=== PATIENT | female | born 1955 | race Two or more races ===

== ENCOUNTER 2020-07-26 15:45 | Inpatient (IN) | payer MEDICARE, OTHER ==
[~2020-07-26] VITALS: Ht 157.5 cm; Wt 65.8 kg
[2020-07-26 17:25] LABS: Basophils # (auto) 0 10 ^3/uL (0-0.2); Basophils % (auto) 0.3 % (0.0-2.0); Eosinophils # (auto) 0 10 ^3/uL (0-0.8); Eosinophils % (auto) 0.8 % (0.0-7.0); Hematocrit 37.7 % (36.0-46.0); Hemoglobin 13.1 g/dL (12.2-16.2); Lymphocytes # (auto) 0.6 10 ^3/uL (0.4-5.4); Lymphocytes % (auto) 11.7 % (10.0-50.0); Mean Corpuscular Hemoglobin 30.9 pg (28.0-32.0); Mean Corpuscular Hgb Conc. 34.6 g/dL (32.0-36.0); Mean Corpuscular Volume 89.1 fL (80.0-100.0); Monocytes # (auto) 0.4 10 ^3/uL (0-1.3); Monocytes % (auto) 8.7 % (0.0-12.0); Neutrophils # (auto) 4.1 10 ^3/uL (1.6-8.6); Neutrophils % (auto) 78.5 % (37.0-80.0); Nucleated Red Blood Cells % 0.1 %; Platelet Count (auto) 314 10^3/uL (140-450); Red Blood Cells 4.23 10^6/uL (4.0-5.20); Red Cell Distribution Width 13.3 % (11.8-14.3); White Blood Cell 5.2 10^3/uL (4.4-10.8)
[2020-07-26 17:43] LABS: INR 1.05 (0.9-1.15); Partial Thromboplastin Time 25.5 sec (23.0-31.2)
[2020-07-26 17:45] LABS: Alanine Aminotransferase 29 U/L (13-56); Albumin 3.1 g/dL (3.4-5.0); Anion Gap 7 (5-15); Aspartate Aminotransferase 22 U/L (15-37); BUN/Creatinine Ratio 19.7; Blood Urea Nitrogen 14 mg/dL (7-18); Carbon Dioxide 29 mmol/L (21-32); Chloride 104 mmol/L (98-107); GFR African American 107 mL/min; GFR Non-African American 88 mL/min; Glucose 211 mg/dL (74-106); Potassium 3.5 mmol/L (3.5-5.1); Sodium 140 mmol/L (136-145)
[2020-07-26 17:49] LABS: Alkaline Phosphatase 72 U/L (45-117); Bilirubin, Total 0.8 mg/dL (0.2-1.0); Total Protein 7.9 g/dL (6.4-8.2)
[2020-07-26] MEDS ORDERED: ACETAMINOPHEN 325 MG TAB PO ONE (18:15)
[2020-07-26] MEDS ORDERED: AZITHROMYCIN 500MG/ 250ML 250 ML IV ONE (20:15)
[2020-07-26] MEDS ORDERED: DexAMETHasone SOD PHOS 10MG/1ML VIAL INJ IV ONE (20:15)
[2020-07-26] MEDS ORDERED: ACETAMINOPHEN 500 MG TAB PO PRN (20:45)
[2020-07-26] MEDS ORDERED: NITROGLYCERIN 0.4 MG SL TAB SL PRN (20:45)
[2020-07-26] MEDS ORDERED: ALBUTEROL SULF HFA 90MCG INH 200DOSE IN PRN (20:45)
[2020-07-26] MEDS ORDERED: MORPHINE SULF INJ 2 MG/ML SYRINGE 1ML IV PRN (20:45)
[2020-07-26] MEDS ORDERED: SODIUM CHLORIDE 0.9% 1,000 ML IV SCH (20:45)
[2020-07-26] MEDS ORDERED: ONDANSETRON HCL 4 MG/2 ML VIAL IV PRN (20:45)
[2020-07-26] MEDS ORDERED: cloNIDine HCL 0.1 MG TAB PO PRN (20:45)
[2020-07-26] MEDS ORDERED: TEMAZEPAM 15 MG CAP PO PRN (20:45)
[2020-07-26 21:25] LABS: Magnesium 2.3 mg/dL (1.6-2.6)
[2020-07-26 21:34] LABS: CRP High Sensitivity 6.75 mg/dL (< 0.3)
[2020-07-26] MEDS: FAMOTIDINE 20 MG TAB PO SCH (22:00)
[2020-07-26] MEDS: ENOXAPARIN SOD 40 MG/0.4 ML SYRINGE SC SCH (22:00)
[2020-07-27 05:13] LABS: Basophils # (auto) 0 10 ^3/uL (0-0.2); Basophils % (auto) 0.3 % (0.0-2.0); Eosinophils # (auto) 0 10 ^3/uL (0-0.8); Eosinophils % (auto) 0.1 % (0.0-7.0); Hematocrit 37.5 % (36.0-46.0); Hemoglobin 12.8 g/dL (12.2-16.2); Lymphocytes # (auto) 0.3 10 ^3/uL (0.4-5.4); Lymphocytes % (auto) 7.6 % (10.0-50.0); Mean Corpuscular Hemoglobin 30.6 pg (28.0-32.0); Mean Corpuscular Hgb Conc. 34.3 g/dL (32.0-36.0); Mean Corpuscular Volume 89.3 fL (80.0-100.0); Monocytes # (auto) 0.1 10 ^3/uL (0-1.3); Monocytes % (auto) 2.1 % (0.0-12.0); Neutrophils # (auto) 3.9 10 ^3/uL (1.6-8.6); Neutrophils % (auto) 89.9 % (37.0-80.0); Nucleated Red Blood Cells % 0.1 %; Platelet Count (auto) 310 10^3/uL (140-450); Red Cell Distribution Width 13.2 % (11.8-14.3); White Blood Cell 4.3 10^3/uL (4.4-10.8)
[2020-07-27 05:39] LABS: Albumin 2.5 g/dL (3.4-5.0); BUN/Creatinine Ratio 20.6; Bilirubin, Total 0.8 mg/dL (0.2-1.0); Calcium 8.9 mg/dL (8.5-10.1)
[2020-07-27] MEDS ORDERED: ASCORBIC ACID 1,000 MG TAB PO SCH (10:00)
[2020-07-27] MEDS ORDERED: DexAMETHasone SOD PHOS 10MG/1ML VIAL INJ IV SCH (10:00)
[2020-07-27] MEDS: FAMOTIDINE 20 MG TAB PO SCH (10:00)
[2020-07-27] MEDS: ENOXAPARIN SOD 40 MG/0.4 ML SYRINGE SC SCH (10:00)
[2020-07-27] MEDS ORDERED: ZINC SULFATE 220mg CAP or TAB PO SCH (10:00)
[2020-07-27] MEDS ORDERED: CHOLECALCIFEROL (VITD3) 2,000 UNIT CAP PO SCH (10:00)
[2020-07-27] MEDS ORDERED: FUROSEMIDE 40 MG/4 ML VIAL IV ONE (14:45)
[2020-07-27] MEDS ORDERED: ZINC220T6 PO (14:55)
[2020-07-27] MEDS ORDERED: ASCO500T11 PO (14:55)
[2020-07-27] MEDS ORDERED: CHOL20007 PO (14:55)
[2020-07-27] MEDS ORDERED: AZIT500T66 PO (14:55)
[2020-07-27] MEDS ORDERED: ALBUAER3 IN (14:55)
[2020-07-27] MEDS ORDERED: PANT40TA2 PO (14:56)
[2020-07-27] MEDS ORDERED: METH4PAK PO (14:56)
[2020-07-27 15:36] VITALS: BP 126/72
[2020-07-27] MEDS ORDERED: AZITHROMYCIN 500MG/ 250ML 250 ML IV SCH (21:00)
== END 2020-07-27 16:56 | disposition home or self-care (01) | DRG 177 ==
LOC: EDBD 15:51 → ER 15:51 → OVERFLOW 15:52
PROVIDERS: ADMIT Nurse Practitioner; ATTEND Internal Medicine
DX: U07.1 COVID-19 (principal); J12.89 Other viral pneumonia; J96.01 Acute respiratory failure with hypoxia; E44.0 Moderate protein-calorie malnutrition; I10 Essential (primary) hypertension; E11.65 Type 2 diabetes mellitus with hyperglycemia; E78.5 Hyperlipidemia, unspecified; Z90.710 Acquired absence of both cervix and uterus; Z82.49 Family history of ischemic heart disease and other diseases of the circulatory system
CPT/HCPCS: 36415; 71045; 80053; 82728; 83036; 83605; 83615; 83735; 84443; 84484; 85025; 85379; 85610; 85730; 86141; 87426; 96365; 96368; 96372; 96375; G0378; J1100

== ENCOUNTER 2020-12-25 12:54 | Inpatient (IN) | payer MEDICARE, MEDICAID ==
[~2020-12-25] VITALS: Ht 162.6 cm; Wt 68.0 kg
[~2020-12-25 12:54] MED LIST: ALBUAER3 IN; ASCO500T11 PO; AZIT500T66 PO; CHOL20007 PO; METH4PAK PO; PANT40TA2 PO; ZINC220T6 PO
[2020-12-25] MEDS ORDERED: cloNIDine HCL 0.1 MG TAB PO ONE (14:00)
[2020-12-25 14:06] LABS: Basophils # (auto) 0.1 10 ^3/uL (0-0.2); Basophils % (auto) 0.8 % (0.0-2.0); Eosinophils # (auto) 0.1 10 ^3/uL (0-0.8); Lymphocytes # (auto) 0.9 10 ^3/uL (0.4-5.4); Lymphocytes % (auto) 13.2 % (10.0-50.0); Mean Corpuscular Hemoglobin 30.8 pg (28.0-32.0); Mean Corpuscular Hgb Conc. 34.2 g/dL (32.0-36.0); Monocytes # (auto) 0.4 10 ^3/uL (0-1.3); Monocytes % (auto) 5.8 % (0.0-12.0); Neutrophils # (auto) 5.3 10 ^3/uL (1.6-8.6); Neutrophils % (auto) 79.2 % (37.0-80.0); Nucleated Red Blood Cells % 0.1 %; Red Blood Cells 4.89 10^6/uL (4.0-5.20); Red Cell Distribution Width 13.3 % (11.8-14.3); White Blood Cell 6.7 10^3/uL (4.4-10.8)
[2020-12-25 14:21] LABS: Alanine Aminotransferase 35 U/L (13-56); Albumin 3.8 g/dL (3.4-5.0); Anion Gap 8 (5-15); Blood Urea Nitrogen 18 mg/dL (7-18); Calcium 8.8 mg/dL (8.5-10.1); Carbon Dioxide 25 mmol/L (21-32); Chloride 106 mmol/L (98-107); Glucose 285 mg/dL (74-106); Magnesium 2.4 mg/dL (1.6-2.6); Potassium 4.3 mmol/L (3.5-5.1); Sodium 139 mmol/L (136-145)
[2020-12-25 14:28] LABS: Alkaline Phosphatase 75 U/L (45-117); Aspartate Aminotransferase 43 U/L (15-37); BUN/Creatinine Ratio 20.5; Bilirubin, Total 0.7 mg/dL (0.2-1.0); GFR African American 83 mL/min; GFR Non-African American 69 mL/min; Total Protein 7.8 g/dL (6.4-8.2)
[2020-12-25 14:53] LABS: Partial Thromboplastin Time 26.4 sec (23.0-31.2)
[2020-12-25 15:03] LABS: Urine Bacteria NONE SEEN /hpf (None Seen); Urine Blood Negative /uL (Negative); Urine Specific Gravity 1.006 (1.001-1.035); Urine WBC <1 /hpf (0 - 5)
[2020-12-25] MEDS ORDERED: NITROGLYCERIN 0.4 MG SL TAB SL PRN ×2 (15:30→19:00)
[2020-12-25] MEDS ORDERED: PANTOPRAZOLE 40 MG/10 ML VIAL INJ IV ONE (15:30)
[2020-12-25] MEDS ORDERED: hydrALAZINE HCL 20 MG/ML VL IV PRN (15:30)
[2020-12-25] MEDS ORDERED: DEXTROSE (50%) 50ML SYRG IV PRN (15:30)
[2020-12-25] MEDS ORDERED: ONDANSETRON HCL 4 MG/2 ML VIAL IV PRN ×2 (15:30→19:00)
[2020-12-25] MEDS ORDERED: MORPHINE SULFATE INJECTION 2 MG/ML SYRG IV PRN ×4 (15:30→19:00)
[2020-12-25] MEDS ORDERED: LABETALOL HCL 5 MG/ML 4ML SYRINGE IV ONE (15:30)
[2020-12-25] MEDS: ACCU-CHEK COMFORT CURVE STRIP VI SCH ×2 (17:00→21:40)
[2020-12-25] MEDS: InsuLIN REG 1unit/0.01ml Soln (100units/ml) SC SCH ×2 (17:00→21:40)
[2020-12-25] MEDS ORDERED: LORazepam 0.5 MG TAB PO PRN (19:00)
[2020-12-25] MEDS ORDERED: DOCUSATE SOD 100 MG CAP PO PRN (19:00)
[2020-12-25] MEDS ORDERED: ALUM & MAG HYDROX-SIMETH LIQ(MAALOX) 30 ML PO PRN (19:00)
[2020-12-25] MEDS ORDERED: ACETAMINOPHEN 325 MG TAB PO PRN (19:00)
[2020-12-25 19:34] LABS: Alcohol, Urine < 3.0 mg/dL (0-10); Amphetamine Screen, Urine NEGATIVE (NEGATIVE); Barbiturate Scree,Urine NEGATIVE (NEGATIVE); Benzodiazephine Screen, Urine NEGATIVE (NEGATIVE); Cannabinoid Screen, Urine NEGATIVE (NEGATIVE); Cocaine Screen, Urine NEGATIVE (NEGATIVE); Opiate Scree,Urine NEGATIVE (NEGATIVE); Phencyclidine Screen, Urine NEGATIVE (NEGATIVE)
[2020-12-25 21:18] LABS: Cholesterol 262 mg/dL (< 200); HDL Cholesterol 40 mg/dL (40-59); LDL Cholesterol 197 mg/dL (< 100); Triglycerides 121 mg/dL (< 150)
[2020-12-25] MEDS: PRAMIPEXOLE DIHYDROCHLORIDE MO 0.25 MG TAB PO SCH (21:40)
[2020-12-25] MEDS: ATORVASTATIN 20 MG TAB PO SCH (21:40)
[2020-12-25] MEDS: HYDROcodone-ACET 5/325MG TAB PO PRN (21:41)
[2020-12-25] MEDS: SODIUM CHLOR 0.9% PF (SALINE LOCK) 10ML VIAL/SYR IV SCH (21:46)
[2020-12-25 22:23] VITALS: BP 133/74
[2020-12-26] MEDS ORDERED: LISI-716 PO (02:12)
[2020-12-26] MEDS ORDERED: ASCO500T11 PO (02:12)
[2020-12-26] MEDS ORDERED: AMLO-489 PO (02:12)
[2020-12-26] MEDS ORDERED: METF-370 PO (02:12)
[2020-12-26] MEDS ORDERED: ZINC220C8 PO (02:12)
[2020-12-26 04:57] VITALS: BP 114/62
[2020-12-26] MEDS: SODIUM CHLOR 0.9% PF (SALINE LOCK) 10ML VIAL/SYR IV SCH ×3 (06:00→21:31)
[2020-12-26] MEDS: ACCU-CHEK COMFORT CURVE STRIP VI SCH ×4 (06:41→21:28)
[2020-12-26] MEDS: InsuLIN REG 1unit/0.01ml Soln (100units/ml) SC SCH ×4 (06:41→21:28)
[2020-12-26 07:47] LABS: Basophils # (auto) 0 10 ^3/uL (0-0.2); Basophils % (auto) 0.5 % (0.0-2.0); Eosinophils # (auto) 0.1 10 ^3/uL (0-0.8); Eosinophils % (auto) 0.7 % (0.0-7.0); Hematocrit 39.4 % (36.0-46.0); Hemoglobin 13.6 g/dL (12.2-16.2); Lymphocytes # (auto) 1.1 10 ^3/uL (0.4-5.4); Lymphocytes % (auto) 14.3 % (10.0-50.0); Mean Corpuscular Hgb Conc. 34.6 g/dL (32.0-36.0); Mean Corpuscular Volume 89.8 fL (80.0-100.0); Monocytes # (auto) 0.5 10 ^3/uL (0-1.3); Monocytes % (auto) 6.8 % (0.0-12.0); Neutrophils % (auto) 77.7 % (37.0-80.0); Nucleated Red Blood Cells % 0.1 %; Red Blood Cells 4.38 10^6/uL (4.0-5.20); Red Cell Distribution Width 13.4 % (11.8-14.3); White Blood Cell 7.7 10^3/uL (4.4-10.8)
[2020-12-26 07:58] LABS: Blood Urea Nitrogen 19 mg/dL (7-18); Calcium 8.8 mg/dL (8.5-10.1); Chloride 108 mmol/L (98-107); Glucose 143 mg/dL (74-106); Sodium 141 mmol/L (136-145)
[2020-12-26 08:00] VITALS: BP 131/72
[2020-12-26 08:02] LABS: Alanine Aminotransferase 28 U/L (13-56); Albumin 3.4 g/dL (3.4-5.0); Alkaline Phosphatase 68 U/L (45-117); Anion Gap 7 (5-15); Aspartate Aminotransferase 24 U/L (15-37); BUN/Creatinine Ratio 25.3; Bilirubin, Total 0.9 mg/dL (0.2-1.0); CRP High Sensitivity 0.55 mg/dL (< 0.3); Carbon Dioxide 26 mmol/L (21-32); Creatine Kinase IFCC 34 U/L (26-192); GFR African American 100 mL/min; GFR Non-African American 82 mL/min; Magnesium 2.3 mg/dL (1.6-2.6); Phosphorus 4.6 mg/dL (2.5-4.90); Total Protein 7.1 g/dL (6.4-8.2)
[2020-12-26 08:13] LABS: INR 1.03 (0.9-1.15); Partial Thromboplastin Time 24.5 sec (23.0-31.2)
[2020-12-26 08:20] LABS: Thyroid Stimulating Hormone 0.93 uIU/mL (0.358-3.74)
[2020-12-26] MEDS: HYDROcodone-ACET 5/325MG TAB PO PRN (09:15)
[2020-12-26] MEDS: ASPirin 81 mg TAB PO SCH (09:16)
[2020-12-26] MEDS: ENOXAPARIN SOD 40 MG/0.4 ML SYRINGE SC SCH (09:17)
[2020-12-26] MEDS: LISINOPRIL 20 MG TAB PO SCH (09:17)
[2020-12-26] MEDS ORDERED: amLODIPine BESYLATE 5 MG TAB PO SCH (10:00)
[2020-12-26 12:00] VITALS: BP 123/57
[2020-12-26 16:00] VITALS: BP 112/60
[2020-12-26] MEDS: ATORVASTATIN 20 MG TAB PO SCH (21:31)
[2020-12-26] MEDS: PRAMIPEXOLE DIHYDROCHLORIDE MO 0.25 MG TAB PO SCH (21:32)
[2020-12-26] MEDS: METOPROLOL TARTRATE 25 MG TAB PO SCH (21:32)
[2020-12-26 22:00] VITALS: BP 122/54
[2020-12-27 05:00] VITALS: BP 104/59
[2020-12-27] MEDS: SODIUM CHLOR 0.9% PF (SALINE LOCK) 10ML VIAL/SYR IV SCH ×2 (05:31→14:00)
[2020-12-27] MEDS: ACCU-CHEK COMFORT CURVE STRIP VI SCH ×2 (06:35→11:43)
[2020-12-27] MEDS: InsuLIN REG 1unit/0.01ml Soln (100units/ml) SC SCH ×2 (06:35→11:44)
[2020-12-27 07:21] LABS: Basophils # (auto) 0 10 ^3/uL (0-0.2); Eosinophils # (auto) 0.1 10 ^3/uL (0-0.8); Eosinophils % (auto) 2.6 % (0.0-7.0); Hematocrit 37.8 % (36.0-46.0); Hemoglobin 13.1 g/dL (12.2-16.2); Lymphocytes # (auto) 1.2 10 ^3/uL (0.4-5.4); Lymphocytes % (auto) 24.6 % (10.0-50.0); Mean Corpuscular Hemoglobin 31.4 pg (28.0-32.0); Mean Corpuscular Hgb Conc. 34.7 g/dL (32.0-36.0); Mean Corpuscular Volume 90.3 fL (80.0-100.0); Monocytes # (auto) 0.4 10 ^3/uL (0-1.3); Monocytes % (auto) 8.9 % (0.0-12.0); Neutrophils # (auto) 3.2 10 ^3/uL (1.6-8.6); Neutrophils % (auto) 62.9 % (37.0-80.0); Nucleated Red Blood Cells % 0.1 %; Red Blood Cells 4.19 10^6/uL (4.0-5.20); Red Cell Distribution Width 13.1 % (11.8-14.3)
[2020-12-27 07:35] LABS: INR 1.01 (0.9-1.15); Partial Thromboplastin Time 25.4 sec (23.0-31.2)
[2020-12-27 07:41] LABS: Potassium 4.1 mmol/L (3.5-5.1)
[2020-12-27 07:52] LABS: Albumin 3.2 g/dL (3.4-5.0); BUN/Creatinine Ratio 29.6; Bilirubin, Total 0.9 mg/dL (0.2-1.0); Calcium 8.8 mg/dL (8.5-10.1); Magnesium 2.2 mg/dL (1.6-2.6); Phosphorus 4.2 mg/dL (2.5-4.90); Total Protein 6.7 g/dL (6.4-8.2)
[2020-12-27 08:00] VITALS: BP 130/59
[2020-12-27] MEDS: METOPROLOL TARTRATE 25 MG TAB PO SCH (09:32)
[2020-12-27] MEDS: ASPirin 81 mg TAB PO SCH (09:32)
[2020-12-27] MEDS: ENOXAPARIN SOD 40 MG/0.4 ML SYRINGE SC SCH (09:33)
[2020-12-27] MEDS: LISINOPRIL 20 MG TAB PO SCH (09:33)
[2020-12-27 11:54] VITALS: BP 127/60
[2020-12-27] MEDS ORDERED: ATOR20TA50 PO (14:00)
[2020-12-27] MEDS ORDERED: ASPI1CHW15 PO (14:00)
[2020-12-27] MEDS ORDERED: PRAM0.5T2 PO (14:00)
[2020-12-27] MEDS ORDERED: METF-372 PO (14:00)
[2020-12-27] MEDS ORDERED: MET25T PO (14:00)
[2020-12-27] MEDS ORDERED: DOCU100C10 PO (14:00)
[2020-12-27] MEDS ORDERED: ALOG1TAB2 PO (14:00)
[2020-12-27] MEDS ORDERED: LISI20TA28 PO (14:00)
== END 2020-12-27 15:35 | disposition home or self-care (01) | DRG 78 ==
LOC: EDBD 12:54 → ER 12:54 → TELE 15:22 → TELE-EAST 20:10
PROVIDERS: ADMIT Hospitalist; ATTEND Hospitalist
DX: I67.4 Hypertensive encephalopathy (principal); G45.9 Transient cerebral ischemic attack, unspecified; N17.9 Acute kidney failure, unspecified; I16.1 Hypertensive emergency; E11.9 Type 2 diabetes mellitus without complications; Z20.822 Contact with and (suspected) exposure to COVID-19; E61.1 Iron deficiency; E66.3 Overweight; Z68.25 Body mass index [BMI] 25.0-25.9, adult; E78.5 Hyperlipidemia, unspecified; Z79.84 Long term (current) use of oral hypoglycemic drugs; Z79.899 Other long term (current) drug therapy; Z82.49 Family history of ischemic heart disease and other diseases of the circulatory system; Z83.3 Family history of diabetes mellitus; Z86.16 Personal history of COVID-19; Z87.01 Personal history of pneumonia (recurrent); Z90.710 Acquired absence of both cervix and uterus; Z91.19 Patient's noncompliance with other medical treatment and regimen; I10 Essential (primary) hypertension; G47.00 Insomnia, unspecified; G25.81 Restless legs syndrome; F17.200 Nicotine dependence, unspecified, uncomplicated; G47.10 Hypersomnia, unspecified
CPT/HCPCS: 36415; 70450; 70551; 71045; 80053; 80061; 80307; 81001; 82306; 82550; 82728; 82962; 83036; 83516; 83540; 83550; 83615; 83735; 83880; 84100; 84443; 84484; 85025; 85610; 85652; 85730; 86141; 86225; 86235; 87040; 87086; 87426; 93005; 93306; 93886; 96374; 96375; C9113; G0378; J1815; J2405

== ENCOUNTER 2021-02-22 20:08 | Emergency (ER) | payer MEDICARE ==
[~2021-02-22] VITALS: Ht 157.5 cm; Wt 68.0 kg
[~2021-02-22 20:08] MED LIST changes: -ALBUAER3 IN; +ALOG1TAB2 PO; -ASCO500T11 PO; +ASPI1CHW15 PO; +ATOR20TA50 PO; -AZIT500T66 PO; -CHOL20007 PO; +DOCU100C10 PO; +LISI20TA28 PO; +MET25T PO; +METF-372 PO; -METH4PAK PO; -PANT40TA2 PO; +PRAM0.5T2 PO; -ZINC220T6 PO
[2021-02-22] MEDS ORDERED: cloNIDine HCL 0.1 MG TAB ONE (20:20)
[2021-02-22] MEDS ORDERED: cloNIDine HCL 0.1 MG TAB PO ONE (20:30)
[2021-02-22 21:19] LABS: Basophils # (auto) 0.1 10 ^3/uL (0-0.2); Basophils % (auto) 1.8 % (0.0-2.0); Eosinophils # (auto) 0 10 ^3/uL (0-0.8); Eosinophils % (auto) 0.4 % (0.0-7.0); Hematocrit 40.5 % (36.0-46.0); Hemoglobin 13.9 g/dL (12.2-16.2); Lymphocytes # (auto) 0.8 10 ^3/uL (0.4-5.4); Lymphocytes % (auto) 14.1 % (10.0-50.0); Mean Corpuscular Hemoglobin 30.8 pg (28.0-32.0); Mean Corpuscular Hgb Conc. 34.4 g/dL (32.0-36.0); Mean Corpuscular Volume 89.3 fL (80.0-100.0); Monocytes # (auto) 0.3 10 ^3/uL (0-1.3); Monocytes % (auto) 6.3 % (0.0-12.0); Neutrophils # (auto) 4.3 10 ^3/uL (1.6-8.6); Neutrophils % (auto) 77.4 % (37.0-80.0); Nucleated Red Blood Cells % 0.1 %; Red Blood Cells 4.53 10^6/uL (4.0-5.20); Red Cell Distribution Width 13.7 % (11.8-14.3); White Blood Cell 5.6 10^3/uL (4.4-10.8)
[2021-02-22 21:28] LABS: INR 0.98 (0.9-1.15); Partial Thromboplastin Time 26.6 sec (23.0-31.2)
[2021-02-22 21:57] LABS: Anion Gap 7 (5-15); Blood Urea Nitrogen 20 mg/dL (7-18); Calcium 9.4 mg/dL (8.5-10.1); Carbon Dioxide 26 mmol/L (21-32); Chloride 103 mmol/L (98-107); Glucose 229 mg/dL (74-106); Potassium 4.6 mmol/L (3.5-5.1); Sodium 136 mmol/L (136-145)
[2021-02-22 22:00] LABS: Alanine Aminotransferase 40 U/L (13-56); Aspartate Aminotransferase 24 U/L (15-37); BUN/Creatinine Ratio 25.6; GFR African American 95 mL/min; GFR Non-African American 79 mL/min
[2021-02-22 22:05] LABS: Alkaline Phosphatase 81 U/L (45-117); Bilirubin, Total 0.5 mg/dL (0.2-1.0)
[2021-02-22 22:51] LABS: Urine Bacteria NONE SEEN /hpf (None Seen); Urine Blood Negative /uL (Negative); Urine WBC 1 /hpf (0 - 5)
[2021-02-22 23:52] VITALS: BP 127/55
== END 2021-02-23 00:07 | disposition home or self-care (01) ==
LOC: ER 20:13
DX: I10 Essential (primary) hypertension (principal); B69.0 Cysticercosis of central nervous system; E11.9 Type 2 diabetes mellitus without complications; E78.5 Hyperlipidemia, unspecified; Z90.710 Acquired absence of both cervix and uterus; Z86.73 Personal history of transient ischemic attack (TIA), and cerebral infarction without residual deficits
CPT/HCPCS: 36415; 70450; 71045; 80053; 81001; 83735; 83880; 84484; 85025; 85610; 85730; 93005

== ENCOUNTER 2021-04-19 03:50 | Emergency (ER) | payer OTHER, MEDICAID ==
[~2021-04-19] VITALS: Ht 147.3 cm; Wt 46.3 kg
[2021-04-19 05:26] LABS: Albumin 3.5 g/dL (3.4-5.0); Anion Gap 8 (5-15); Carbon Dioxide 25 mmol/L (21-32); Chloride 106 mmol/L (98-107); Glucose 157 mg/dL (74-106); Potassium 3.9 mmol/L (3.5-5.1); Sodium 139 mmol/L (136-145)
[2021-04-19 05:32] LABS: Alanine Aminotransferase 33 U/L (13-56); Alkaline Phosphatase 62 U/L (45-117); Aspartate Aminotransferase 28 U/L (15-37); Bilirubin, Total 0.4 mg/dL (0.2-1.0); GFR African American 93 mL/min; GFR Non-African American 77 mL/min; Total Protein 7.4 g/dL (6.4-8.2)
[2021-04-19 05:39] LABS: BUN/Creatinine Ratio 22.5; Blood Urea Nitrogen 18 mg/dL (7-18)
[2021-04-19 06:50] LABS: Basophils # (auto) 0 10 ^3/uL (0-0.2); Basophils % (auto) 0.8 % (0.0-2.0); Eosinophils # (auto) 0.1 10 ^3/uL (0-0.8); Eosinophils % (auto) 1.4 % (0.0-7.0); Hematocrit 40.4 % (36.0-46.0); Hemoglobin 13.5 g/dL (12.2-16.2); Lymphocytes % (auto) 19.5 % (10.0-50.0); Mean Corpuscular Hemoglobin 30.9 pg (28.0-32.0); Mean Corpuscular Hgb Conc. 33.4 g/dL (32.0-36.0); Mean Corpuscular Volume 92.5 fL (80.0-100.0); Monocytes # (auto) 0.4 10 ^3/uL (0-1.3); Neutrophils # (auto) 3.7 10 ^3/uL (1.6-8.6); Neutrophils % (auto) 71.3 % (37.0-80.0); Red Blood Cells 4.37 10^6/uL (4.0-5.20); Red Cell Distribution Width 13.2 % (11.8-14.3); White Blood Cell 5.2 10^3/uL (4.4-10.8)
[2021-04-19 10:34] VITALS: BP 146/72
[2021-04-19 11:51] LABS: Urine Bacteria NONE SEEN /hpf (None Seen); Urine Blood Negative /uL (Negative); Urine Specific Gravity 1.009 (1.001-1.035); Urine WBC <1 /hpf (0 - 5)
== END 2021-04-19 11:01 | disposition home or self-care (01) ==
LOC: ER 03:50
DX: R07.2 Precordial pain (principal); R10.13 Epigastric pain; I10 Essential (primary) hypertension; E11.9 Type 2 diabetes mellitus without complications; E78.5 Hyperlipidemia, unspecified; Z86.73 Personal history of transient ischemic attack (TIA), and cerebral infarction without residual deficits; Z90.710 Acquired absence of both cervix and uterus; Z79.82 Long term (current) use of aspirin; Z79.899 Other long term (current) drug therapy
CPT/HCPCS: 36415; 71045; 80053; 81001; 83880; 84484; 93005

== ENCOUNTER 2024-07-02 13:57 | Inpatient (IN) | payer OTHER, MEDICAID ==
[~2024-07-02] VITALS: Ht 160 cm; Wt 66.5 kg
[~2024-07-02 13:57] MED LIST changes: +ASPI-736 PO; -ASPI1CHW15 PO; +DOCU-265 PO; -DOCU100C10 PO; -LISI20TA28 PO; +LISI20TA56 PO
[2024-07-02] MEDS: ASPirin 81 mg TAB PO ONE (14:15)
[2024-07-02 14:33] LABS: Basophils # (auto) 0 10 ^3/uL (0-0.2); Basophils % (auto) 0.6 % (0.0-2.0); Eosinophils # (auto) 0.1 10 ^3/uL (0-0.8); Eosinophils % (auto) 1.5 % (0.0-7.0); Hematocrit 42.6 % (36.0-46.0); Hemoglobin 14.2 g/dL (12.2-16.2); Lymphocytes # (auto) 1.4 10 ^3/uL (0.4-5.4); Lymphocytes % (auto) 19.8 % (10.0-50.0); Mean Corpuscular Hgb Conc. 33.2 g/dL (32.0-36.0); Mean Corpuscular Volume 90.3 fL (80.0-100.0); Monocytes # (auto) 0.4 10 ^3/uL (0-1.3); Monocytes % (auto) 6.1 % (0.0-12.0); Nucleated Red Blood Cells % 0.2 %; Platelet Count (auto) 265 10^3/uL (140-450); Red Blood Cells 4.72 10^6/uL (4.0-5.20); Red Cell Distribution Width 13.2 % (11.8-14.3)
--- NOTE | 2024-07-02 14:36 | ED.PDOC ---
HPI Comments 68-year-old female who comes in with chief complaint of chest pain that is non provoked at this time. The patient states that the chest pain started while she was at rest. She describes it as substernal and pressure-like. It was associated with some nausea as well as some shortness a breath with the patient denies any vomiting. She has had a history of this chest pain in the past but states that she has never had an [place]. the symptoms started approximately 30 minutes prior to arrival. There has been no cough or fever. She states that the pain is a 4/10 at this time. Chief Complaint: Chest Pain Time Seen by MD: 14:01 Primary Care Provider: patk Reviewed Notes: Nurses Notes, Medications, Allergies (No allergies to medications) Allergies: Coded Allergies: NO KNOWN ALLERGIES (Unverified , 07/26/20) Home Meds Active Scripts Alogliptin Benzoate (Alogliptin) 25 Mg Tab, 25 MG PO DAILY for 30 Days, #30 TAB Prov:YOGESH LALA MD 12/27/20 Metformin Hydrochloride (Metformin Hcl) 1,000 Mg Tab, 1000 MG PO BIDWM, #60 TAB Prov:YOGESH LALA MD 12/27/20 Pramipexole Dihydrochloride (Mirapex) 0.5 Mg Tab, 0.25 MG PO HS, #30 TAB Prov:YOGESH LALA MD 12/27/20 Metoprolol Tartrate (Lopressor) 25 Mg Tb, 25 MG PO BID, #60 TAB Prov:YOGESH LALA MD 12/27/20 Lisinopril (Lisinopril) 20 Mg Tab, 20 MG PO DAILY, #30 TAB Prov:YOGESH LALA MD 12/27/20 Docusate Sodium (Docusate Sodium) 100 Mg Cap, 100 MG PO BIDPRN PRN, #60 CAP Prov:YOGESH LALA MD 12/27/20 Atorvastatin Calcium (ATORVASTATIN CALCIUM) 20 Mg Tab, 40 MG PO HS, #30 TAB Prov:YOGESH LALA MD 12/27/20 Aspirin (Aspirin Low Strength) 81 Mg Chw, 81 MG PO DAILY for 30 Days, #30 TAB.CHEW Prov:YOGESH LALA MD 12/27/20 Information Source: Patient Mode of Arrival: Wheelchair Severity: Moderate Timing: Minutes Duration: Since onset Prehospital treatment: None Location: Substernal Radiation: No Radiation Quality: Squeezing, Pressure Onset: At Rest Cardiac Risk Factors: Hyperlipidemia, HTN, Diabetes PE Risk Factors: None History of: Similar pain in past Modifying Factors: Nothing Associated Signs and Symptoms: SOB, N/V (Nausea but no vomiting) Past Medical History PAST MEDICAL HISTORY: DM, High Lipids, HTN, TIA Surgical History: 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 History Family History Family History: Family hx of HTN Social History Smoker: Non-Smoker Alcohol: Denies ETOH Use Drugs: Denies Drug Use Lives In: Home Constitutional: denies: chills, diaphoresis, fatigue, fever, malaise, sweats, weakness, others EENTM: denies: blurred vision, double vision, ear bleeding, ear discharge, ear drainage, ear pain, ear ringing, eye pain, eye redness, hearing loss, mouth pain, mouth swelling, nasal discharge, nose bleeding, nose congestion, nose pain, photophobia, tearing, throat pain, throat swelling, voice changes, others Respiratory: reports: shortness of breath; denies: cough, hemoptysis, orthopnea, SOB at rest, SOB with excertion, stridor, wheezing, others Cardiovascular: reports: chest pain; denies: dizzy spells, diaphoresis, Dyspnea on exertion, edema, irregular heart beat, left arm pain, lightheadedness, palpitations, PND, syncope, others Gastrointestinal: reports: nausea; denies: abdomen distended, abdominal pain, blood streaked bowels, constipated, diarrhea, dysphagia, difficulty swallowing, hematemesis, melena, poor appetite, poor fluid intake, rectal bleeding, rectal pain, vomiting, others Genitourinary: denies: abnormal vagina bleeding, burning, dyspareunia, dysuria, flank pain, frequency, hematuria, incontinence, pain, , vagina discharge, urgency, others Neurological: denies: dizziness, fainting, headache, left sided numbness, left sided weakness, numbness, paresthesia, pre-existing deficit, right sided numbness, right sided weakness, seizure, speech problems, tingling, tremors, weakness, others Musculoskeletal: denies: back pain, gout, joint pain, joint swelling, muscle pain, muscle stiffness, neck pain, others Integumetry: denies: bruises, change in color, change in hair/nails, dryness, laceration, lesions, lumps, rash, wounds, others Allergic/Immunocompromised: denies: Difficulty Healing, Frequent Infections, Hives, Itching, others Hematologic/Lymphatic: denies: anemia, blood clots, easy bleeding, easy bruising, swollen glands, others Endocrine: denies: excessive hunger, excessive sweating, excessive thirst, excessive urination, flushing, intolerance to cold, intolerance to heat, unexplained weight gain, unexplained weight loss, others Psychiatric: denies: anxiety, bipolar disorder, depression, hopeless, panic disorder, schizophrenia, sleepless, suicidal, others Physical Exam General Appearance: Moderate Distress HEENT: Normal ENT Inspection, Pharynx Normal, TMs Normal Neck: Full Range of Motion, Non-Tender, Normal, Normal Inspection Respiratory: Chest Non-Tender, Lungs Clear, No Accessory Muscle Use, No Respiratory Distress, Normal Breath Sounds Cardiovascular: No Edema, No JVD, No Murmur, No Gallop, Normal Peripheral Pulses, Regular Rate/Rhythm Breast Exam: Deferred Gastrointestinal: No Organomegaly, Non Tender, No Pulsatile Mass, Normal Bowel Sounds, Soft Genitalia: Deferred Pelvic: Deferred Rectal: Deferred Extremities: No calf tenderness, Normal capillary refill, Normal inspection, Normal range of motion, Non-tender, No pedal edema Musculoskeletal : Apperance: Normal Neurologic: Alert, senior java software engineer II-XII nml as Tested, No Motor Deficits, Normal Affect, Normal Mood, No Sensory Deficits Cerebellar Function: Normal Reflexes: Normal Skin: Dry, Normal Color, Warm Lymphatic: No Adenopathy EKG EKG : Pulse Rate (adult): 109 [place]: Normal Cardiac Rhythm: ST Hypertrophy: LAE ST: Nonsp (Poor R-wave progression) Was a procedure done? Was a procedure done?: No CP Differential Dx Differential Diagnosis: Angina, [place], Pulmonary Embolus Differential Diagnosis: CHF Differential Diagnosis: Pericarditis X-Ray, Labs, Meds, VS Vital Signs Date Time Temp Pulse Resp B/P (MAP) Pulse Ox O2 Delivery O2 Flow Rate FiO2 07/02/24 14:58 99 07/02/24 14:36 98.0 113 19 168/76 (106) 98 07/02/24 14:36 109 07/02/24 14:03 109 Lab Test 07/02/24 14:12 Range/Units White Blood Count 7.0 4.4-10.8 10^3/uL Red Blood Count 4.72 4.0-5.20 10^6/uL Hemoglobin 14.2 12.2-16.2 g/dL Hematocrit 42.6 36.0-46.0 % Mean Corpuscular Volume 90.3 80.0-100.0 fL Mean Corpuscular Hemoglobin 30.0 28.0-32.0 pg Mean Corpuscular Hemoglobin Concent 33.2 32.0-36.0 g/dL Red Cell Distribution Width 13.2 11.8-14.3 % Platelet Count 265 140-450 10^3/uL Mean Platelet Volume 8.8 6.9-10.8 fL Neutrophils (%) (Auto) 72.0 37.0-80.0 % Lymphocytes (%) (Auto) 19.8 10.0-50.0 % Monocytes (%) (Auto) 6.1 0.0-12.0 % Eosinophils (%) (Auto) 1.5 0.0-7.0 % Basophils (%) (Auto) 0.6 0.0-2.0 % Neutrophils # (Auto) 5.0 1.6-8.6 10 ^3/uL Lymphocytes # (Auto) 1.4 0.4-5.4 10 ^3/uL Monocytes # (Auto) 0.4 0-1.3 10 ^3/uL Eosinophils # (Auto) 0.1 0-0.8 10 ^3/uL Basophils # (Auto) 0 0-0.2 10 ^3/uL Nucleated Red Blood Cells 0.2 % Sodium Level 142 136-145 mmol/L Potassium Level 3.8 3.5-5.1 mmol/L Chloride Level 108 H 98-107 mmol/L Carbon Dioxide Level 23 20-31 mmol/L Anion Gap 11 5-15 Blood Urea Nitrogen 13 9-23 mg/dL Creatinine 0.98 0.550-1.02 mg/dL Glomerular Filtration Rate Calc 63 >90 mL/min BUN/Creatinine Ratio 13.3 10.0-20.0 Serum Glucose 156 H 74-106 mg/dL Calcium Level 10.3 8.7-10.4 mg/dL Troponin I High Sensitivity < 3 L </=34 ng/L B-Type Natriuretic Peptide 57.11 0-100 pg/mL The patient's CBC is within normal limits The chemistry panel is within normal limits The troponin level is negative The BNP is within normal limits The chest x-ray is negative A cardiology consult should be obtained Images Reviewed?: Images reviewed and evaluated by me Time of 1ST Reevaluation: 14:36 Reevaluation 1ST: Unchanged Patient Education/Counseling: Diagnosis, Treatment, Prognosis Family Education/Counseling: No Family Present Departure 1 Departure Time of Disposition: 15:28 Impression: Primary Impression: Acute coronary syndrome Disposition: 09 ADMITTED INPATIENT Admit to: [facility] Condition: Fair Critical Care Note Critical Care Time?: Yes (35 min-critical care time only) Stability Stability form required: Yes Unstable for transfer: Telemetry monitoring (Telemetry monitoring required), ED Physician Assesment (Clinical assesment) Heart Score Heart Score: Heart Score Response (Comments) Value History Moderate Suspicious 1 EKG Repolarization Disturb 1 Age >65 2 Risk Factors >3 or Hx ASHD 2 Troponin Normal limit 0 Total 6 KATHIE GRECO MD Jul 02, 2024 14:36
--- NOTE | 2024-07-02 14:39 | DVH ---
CHEST RADIOGRAPH Indication: cp Technique: Frontal and lateral view of the chest was obtained Comparison: None FINDINGS: Lines and Tubes: None Lungs: Clear Pleura: No effusion. No pneumothorax. Cardiomediastinal contours: Unremarkable Bones: Unremarkable IMPRESSION: No evidence of acute disease.
[2024-07-02 14:42] LABS: Potassium 3.8 mmol/L (3.5-5.1); Sodium 142 mmol/L (136-145)
[2024-07-02 14:43] LABS: Anion Gap 11 (5-15); Calcium 10.3 mg/dL (8.7-10.4); Carbon Dioxide 23 mmol/L (20-31)
[2024-07-02 14:50] LABS: Chloride 108 mmol/L (98-107); Glucose 156 mg/dL (74-106)
[2024-07-02 15:10] LABS: BUN/Creatinine Ratio 13.3 (10.0-20.0); Blood Urea Nitrogen 13 mg/dL (9-23)
[2024-07-02] MEDS ORDERED: MAALOX PLUS or MAALOX 30 ML PO PRN (15:15)
[2024-07-02] MEDS ORDERED: NITROGLYCERIN 0.4 MG SL TAB SL PRN (15:15)
[2024-07-02] MEDS ORDERED: MORPHINE SULFATE INJ 2 MG/ml SYRG IV PRN (15:15)
[2024-07-02] MEDS ORDERED: ACETAMINOPHEN 325 MG TAB PO PRN (15:15)
[2024-07-02] MEDS ORDERED: DEXTROSE (50%) 50ML SYRG IV PRN (15:15)
--- NOTE | 2024-07-02 15:32 | DVHHP2 ---
History of Present Illness Reason for Visit: chest pain History of Present Illness 60-year-old patient with a past medical history of diverticulosis anxiety and depression comes to the ED with complaints of nausea and vomiting and abdominal pain patient has been having pain for the last 2 days stating that since she woke up this morning she has been having consistent nausea and vomiting with as per patient has vomited over 10 times with a higher estimate of higher than 20 times patient was evaluated in the ED CT scan was completed and there suspected signs that the patient may be having signs of acute infectious colitis patient will be admitted as per ED recommendations for further treatment and care Cardiovascular: HTN Review of Systems Constitutional: Yes: Weakness; No: Fever, Chills, Sweats, Malaise, Other Eyes: No: Pain, Vision change, Conjunctivae inflammation, Eyelid inflammation, Other, Redness ENT: No: Ear pain, Ear discharge, Nose pain, Nose discharge, Nose congestion, Mouth pain, Mouth swelling, Throat pain, Throat swelling, Other Respiratory: No: Cough, Dry, Shortness of breath, SOB with excertion, Wheezing, Hemoptysis, Pleuritic Pain, Sputum, Wheezing, Other Cardiovascular: No: Chest Pain, Palpitations, Orthopnea, Paroxysmal Noc. Dyspnea, Edema, Lt Headedness, Other Gastrointestinal: Nausea, Vomiting, Abdominal Pain, Constipation; No: Diarrhea, Melena, Hematochezia, Other Genitourinary: No Dysuria, No Frequency, No Incontinence, No Hematuria, No Retention, No Other Musculoskeletal: No: other, neck pain, shoulder pain, arm pain, back pain, hand pain, leg pain, foot pain Skin: No: Rash, Lesions, Jaundice, Bruising, Other Neurological: No: Weakness, Numbness, Incoordination, Change in speech, Confusion, Seizures, Other Allergies: Coded Allergies: NO KNOWN ALLERGIES (Unverified , 07/26/20) Medications Current Medications Medications Dose Ordered Sig/Maria De Jesus Route Start Time Stop Time Status Last Admin Dose Admin Atorvastatin Calcium 40 mg HS PO 07/02/24 22:00 UNV Docusate Sodium 100 mg BIDPRN PRN PO 07/02/24 15:15 UNV Lisinopril 20 mg DAILY PO 07/03/24 10:00 UNV Metoprolol Tartrate 25 mg BID PO 07/02/24 22:00 UNV Patient Own Medication 25 mg DAILY PO 07/03/24 10:00 UNV Patient Own Medication 81 mg DAILY PO 07/03/24 10:00 UNV Patient Own Medication 0.25 mg HS PO 07/02/24 22:00 UNV Diagnostic Test (Pha) 1 strip IQ4HR 07/02/24 16:00 UNV Insulin Human Regular IQ4HR SC 07/02/24 16:00 UNV Dextrose 50 ml UD PRN IV 07/02/24 15:15 UNV Aspirin 81 mg DAILY PO 07/03/24 10:00 UNV Acetaminophen 650 mg Q6HP PRN PO 07/02/24 15:15 UNV Zolpidem Tartrate 5 mg QHSP PRN PO 07/02/24 15:15 UNV Lorazepam 0.5 mg Q6HP PRN PO 07/02/24 15:15 UNV Ondansetron HCl 4 mg Q4HP PRN IV 07/02/24 15:15 UNV Al Hydrox/Mg Hydrox/Simethicone 30 ml Q6HPRN PRN PO 07/02/24 15:15 UNV Nitroglycerin 0.4 mg Q5MINP PRN SL 07/02/24 15:15 UNV Morphine Sulfate 2 mg Q30M PRN IV 07/02/24 15:15 UNV Exam Vital Signs Vital Signs Date Time Temp Pulse Resp B/P (MAP) Pulse Ox O2 Delivery O2 Flow Rate FiO2 07/02/24 14:36 98.0 113 19 168/76 (106) 98 General Appearance: Alert, Oriented X3, Cooperative HEENT: Atraumatic, EOMI Respiratory: Clear to auscultation, Normal air movement Cardiovascular: Normal S1, Normal S2 Abdominal: Normal bowel sounds, Soft, No tenderness Extremities: No clubbing, No cyanosis, No edema Skin: No rashes, No significant lesion Neuro: Normal speech Psych/Mental Status: Mood NL Labs/Xrays Labs Test 07/02/24 14:12 Range/Units White Blood Count 7.0 4.4-10.8 10^3/uL Red Blood Count 4.72 4.0-5.20 10^6/uL Hemoglobin 14.2 12.2-16.2 g/dL Hematocrit 42.6 36.0-46.0 % Mean Corpuscular Volume 90.3 80.0-100.0 fL Mean Corpuscular Hemoglobin 30.0 28.0-32.0 pg Mean Corpuscular Hemoglobin Concent 33.2 32.0-36.0 g/dL Red Cell Distribution Width 13.2 11.8-14.3 % Platelet Count 265 140-450 10^3/uL Mean Platelet Volume 8.8 6.9-10.8 fL Neutrophils (%) (Auto) 72.0 37.0-80.0 % Lymphocytes (%) (Auto) 19.8 10.0-50.0 % Monocytes (%) (Auto) 6.1 0.0-12.0 % Eosinophils (%) (Auto) 1.5 0.0-7.0 % Basophils (%) (Auto) 0.6 0.0-2.0 % Neutrophils # (Auto) 5.0 1.6-8.6 10 ^3/uL Lymphocytes # (Auto) 1.4 0.4-5.4 10 ^3/uL Monocytes # (Auto) 0.4 0-1.3 10 ^3/uL Eosinophils # (Auto) 0.1 0-0.8 10 ^3/uL Basophils # (Auto) 0 0-0.2 10 ^3/uL Nucleated Red Blood Cells 0.2 % Sodium Level 142 136-145 mmol/L Potassium Level 3.8 3.5-5.1 mmol/L Chloride Level 108 H 98-107 mmol/L Carbon Dioxide Level 23 20-31 mmol/L Anion Gap 11 5-15 Blood Urea Nitrogen 13 9-23 mg/dL Creatinine 0.98 0.550-1.02 mg/dL Glomerular Filtration Rate Calc 63 >90 mL/min BUN/Creatinine Ratio 13.3 10.0-20.0 Serum Glucose 156 H 74-106 mg/dL Calcium Level 10.3 8.7-10.4 mg/dL Troponin I High Sensitivity < 3 L </=34 ng/L B-Type Natriuretic Peptide 57.11 0-100 pg/mL Assessment/Plan Assessment/Plan Admit to [facility] Infectious colitis suspected IV hydration IV antibiotics Diet as tolerated Chronic underlying diseases including history of suspected cirrhosis Continue with the home medication management CT scan shows signs of possible infectious colitis Patient with hyperglycemia as well Diabetes uncontrolled hyperglycemia IV hydration Insulin sliding scale moderate Incidental finding of liver nodule follow up on outpatient basis Plan discussed with: Patient My Orders Orders - JUSTYNA BROWN MD Procedure Category Date Status Time Atorvastatin (Lipitor) PHA 07/02/24 Logged 22:00 Docusate Sodium PHA 07/02/24 Logged Capsule (Colace 15:15 Lisinopril Tablet PHA 07/03/24 Logged (Zestril Tablet) 10:00 Metoprolol Tartrate PHA 07/02/24 Logged Tablet (Lopressor Ta 22:00 (Nf) Alogliptin PHA 07/03/24 Logged Benzoate (Alogliptin) 10:00 (Nf) Aspirin (Aspirin PHA 07/03/24 Logged Low Strength) 10:00 (Nf) Pramipexole PHA 07/02/24 Logged Dihydrochloride 22:00 Glucose Blood PHA 07/02/24 Logged (Accu-Chek Comfort 16:00 Insulin R (Human) PHA 07/02/24 Logged (Insulin R) 16:00 Dextrose 50% Syringe PHA 07/02/24 Logged 15:15 Admit ADMIT 07/02/24 Transmitted 15:07 Code Status CODE 07/02/24 Transmitted 15:07 Vital Signs LAURI 07/02/24 In Process 15:07 Cardiac DIET 07/02/24 Transmitted Diet-2gna,Lofat,Lochol Dinner Aspirin Tablet PHA 07/03/24 Logged 10:00 Acetaminophen Tablet PHA 07/02/24 Logged (Tylenol Tablet) 15:15 Zolpidem Tartrate PHA 07/02/24 Logged (Ambien) 15:15 Lorazepam Tablet PHA 07/02/24 Logged (Ativan Tablet) 15:15 Complete Blood Count LAB 07/03/24 Verified 04:00 Comprehensive LAB 07/03/24 Verified Metabolic Panel 04:00 Ondansetron Hcl PHA 07/02/24 Logged (Zofran) 15:15 Electrocardigram EKG 07/02/24 Logged 15:07 Alum & Mag PHA 07/02/24 Logged Hydrox-Simethicone 15:15 Troponin-I Hs LAB 07/02/24 Logged 15:07 Cardiac LAURI 07/02/24 In Process Rehabilitation - Outpa Nitroglycerin PHA 07/02/24 Logged Sublingual (Ntrostat 15:15 Morphine Sulfate PHA 07/02/24 Logged Injection 15:15 Stat Ekg For Chest LAURI 07/02/24 In Process Pain 15:07 Notify Md Of Changes LAURI 07/02/24 In Process From Base 15:07 Clinic Scheduler For [facility] 07/02/24 In Process 24 Hours 15:07 Emergency Dysrhythmia [facility] 07/02/24 In Process Protocol 15:07 Rhythm Strips Once [facility] 07/02/24 In Process Every Shift 15:07 Oxygen By Nasal RT 07/02/24 Transmitted Cannula 15:07 Problem List: (1) Uncontrolled diabetes mellitus (2) Chest pain Date of Service: Jul 02, 2024 Billing Provider: JUSTYNA BROWN MD Common Visit Codes: [id number] INP/OBS CARE (HIGH) JUSTYNA BROWN MD Jul 02, 2024 15:32
[2024-07-02] MEDS: InsuLIN REG 1unit/0.01ml Soln (100units/ml) SC SCH (16:00)
[2024-07-02] MEDS: ACCU-CHEK COMFORT CURVE STRIP VI SCH (16:00)
[2024-07-02 16:29] VITALS: PULSE 87; RESP 16; O2SAT 96
--- NOTE | 2024-07-02 18:09 | ECG ---
[facility] Test Date: 2024-07-02 Test Time: 14:58:51 Pat Name: XIMENA BENITEZ Department: ER Room: 0285 Gender: F Dialysis Equipment Technician: FAHAD : 1955 Requested By: KATHIE GRECO Order Number: [id number] Reading MD: Paolo Mcclelland Measurements Intervals [place] Rate: 99 P: 42 CT: 146 QRS: -47 QRSD: 93 T: 58 QT: 356 QTc: 457 Interpretive Statements Sinus rhythm Left anterior fascicular block Abnormal R-wave progression, late transition Electronically Signed On 07-03-2024 16:24:48 PST by Paolo Mcclelland Please click the below link to view image of tracing.
[2024-07-02] MEDS: FUROSEMIDE 20 MG/2 ML VIAL ONE (18:20)
[2024-07-02] MEDS: ATORVASTATIN 20 MG TAB PO SCH (22:42)
[2024-07-02] MEDS: METOPROLOL TARTRATE 25 MG TAB PO SCH (22:43)
[2024-07-02] MEDS: PRAMIPEXOLE DIHYDROCHLORIDE MO 0.25 MG TAB PO SCH (22:43)
[2024-07-03] VITALS (7 sets, daily range): BP systolic 104–115; BP diastolic 41–62; PULSE 58–100; RESP 12–18; TEMP 97.7–98.2; O2SAT 92–97
[2024-07-03 07:45] LABS: Basophils # (auto) 0 10 ^3/uL (0-0.2); Basophils % (auto) 0.5 % (0.0-2.0); Eosinophils # (auto) 0.1 10 ^3/uL (0-0.8); Eosinophils % (auto) 1.8 % (0.0-7.0); Hematocrit 39.9 % (36.0-46.0); Hemoglobin 13.7 g/dL (12.2-16.2); Lymphocytes % (auto) 14.9 % (10.0-50.0); Mean Corpuscular Hemoglobin 30.9 pg (28.0-32.0); Mean Corpuscular Hgb Conc. 34.4 g/dL (32.0-36.0); Mean Corpuscular Volume 90.1 fL (80.0-100.0); Monocytes # (auto) 0.5 10 ^3/uL (0-1.3); Monocytes % (auto) 7.3 % (0.0-12.0); Neutrophils % (auto) 75.5 % (37.0-80.0); Platelet Count (auto) 249 10^3/uL (140-450); Red Blood Cells 4.43 10^6/uL (4.0-5.20); Red Cell Distribution Width 13.3 % (11.8-14.3); White Blood Cell 6.6 10^3/uL (4.4-10.8)
[2024-07-03 08:01] LABS: Alanine Aminotransferase 18 U/L (7-40); Alkaline Phosphatase 71 U/L (46-116); Anion Gap 8 (5-15); Aspartate Aminotransferase 18 U/L (13-40); BUN/Creatinine Ratio 15.8 (10.0-20.0); Blood Urea Nitrogen 12 mg/dL (9-23); Calcium 10.2 mg/dL (8.7-10.4); Carbon Dioxide 27 mmol/L (20-31); Chloride 106 mmol/L (98-107); Potassium 3.7 mmol/L (3.5-5.1); Sodium 141 mmol/L (136-145)
[2024-07-03 08:02] LABS: Albumin 4.3 g/dL (3.2-4.8); Total Protein 7.2 g/dL (5.7-8.2)
[2024-07-03 08:04] LABS: Glucose 123 mg/dL (74-106)
[2024-07-03] MEDS: ONDANSETRON HCL 4 MG/2 ML VIAL IV PRN (08:58)
[2024-07-03] MEDS: LISINOPRIL 20 MG TAB PO SCH (09:52)
[2024-07-03] MEDS: ASPirin 81 mg TAB PO SCH (09:52)
[2024-07-03] MEDS ORDERED: PATIENTS OWN MEDICATION (Aspirin (Aspirin Low Strength) 81 MG) PO SCH (10:00)
--- NOTE | 2024-07-03 10:39 | ECG ---
[facility] Test Date: 2024-07-02 Test Time: 14:03:39 Pat Name: XIMENA BENITEZ Department: ER Room: 0285 B Gender: F Intervention Specialist: MAY : 1955 Requested By: KATHIE GRECO Order Number: [id number] Reading MD: Paolo Mcclelland Measurements Intervals [place] Rate: 109 P: 47 SD: 151 QRS: -55 QRSD: 85 T: 91 QT: 339 QTc: 457 Interpretive Statements Sinus tachycardia Probable left atrial enlargement Left anterior fascicular block Abnormal R-wave progression, late transition Borderline repolarization abnormality Electronically Signed On 07-03-2024 16:24:39 PST by Paolo Mcclelland Please click the below link to view image of tracing.
--- NOTE | 2024-07-03 14:53 | DVHPN2 ---
Reviewed: Care Plan, H&P, Labs, Medications, Previous Orders, Radiology Changes from previous H/P or p: No Changes Eyes: No Pain, No Vision change, No Conjunctivae inflammation, No Eyelid inflammation, No Other, No Redness ENT: No Ear pain, No Ear discharge, No Nose pain, No Nose discharge, No Nose congestion, No Mouth pain, No Mouth swelling, No Throat pain, No Throat swelling, No Other Cardiovascular: No Chest Pain, No Palpitations, No Orthopnea, No Paroxysmal Noc. Dyspnea, No Edema, No Lt Headedness, No Other Respiratory: No Cough, No Dry, No Shortness of breath, No SOB with excertion, No Wheezing, No Hemoptysis, No Pleuritic Pain, No Sputum, No Other Gastrointestinal: Nausea, Vomiting, Abdominal Pain; No Diarrhea; Constipation; No Melena, No Hematochezia, No Other Genitourinary: No Dysuria, No Frequency, No Incontinence, No Hematuria, No Retention, No Other Musculoskeletal: No other, No neck pain, No shoulder pain, No arm pain, No back pain, No hand pain, No leg pain, No foot pain Skin: No Rash, No Lesions, No Jaundice, No Bruising, No Other Objective Vitals Vital Signs Date Time Temp Pulse Resp B/P (MAP) Pulse Ox O2 Delivery O2 Flow Rate FiO2 07/03/24 09:52 97 135/71 07/03/24 09:00 97.9 17 97 97.9 07/03/24 08:20 Room Air* 0 21 Intake/Output Intake and Output 07/03/24 07:00 Intake Total 240 ml Balance 240 ml Intake Oral 240 ml Medications Current Medications Medications Dose Ordered Sig/Maria De Jesus Route Start Time Stop Time Status Last Admin Dose Admin Atorvastatin Calcium 40 mg HS PO 07/02/24 22:00 07/02/24 22:42 40 MG Docusate Sodium 100 mg BIDPRN PRN PO 07/02/24 15:15 Lisinopril 20 mg DAILY PO 07/03/24 10:00 07/03/24 09:52 20 MG Metoprolol Tartrate 25 mg BID PO 07/02/24 22:00 07/03/24 09:52 25 MG Patient Own Medication 25 mg DAILY PO 07/03/24 10:00 Pramipexole Dihydrochloride 0.25 mg HS PO 07/02/24 22:00 07/02/24 22:43 0.25 MG Diagnostic Test (Pha) 1 strip IQ4HR 07/02/24 16:00 07/03/24 12:05 1 STRIP Insulin Human Regular IQ4HR SC 07/02/24 16:00 07/03/24 12:09 2 UNITS Dextrose 50 ml UD PRN IV 07/02/24 15:15 Aspirin 81 mg DAILY PO 07/03/24 10:00 07/03/24 09:52 81 MG Acetaminophen 650 mg Q6HP PRN PO 07/02/24 15:15 Zolpidem Tartrate 5 mg QHSP PRN PO 07/02/24 15:15 Lorazepam 0.5 mg Q6HP PRN PO 07/02/24 15:15 Ondansetron HCl 4 mg Q4HP PRN IV 07/02/24 15:15 07/03/24 08:58 4 MG Al Hydrox/Mg Hydrox/Simethicone 30 ml Q6HPRN PRN PO 07/02/24 15:15 Nitroglycerin 0.4 mg Q5MINP PRN SL 07/02/24 15:15 Morphine Sulfate 2 mg Q30M PRN IV 07/02/24 15:15 Laboratory Results Laboratory Tests 07/03/24 06:52 Chemistry Test 07/03/24 06:52 Albumin 4.3 g/dL (3.2-4.8) Calcium Level 10.2 mg/dL (8.7-10.4) Total Protein 7.2 g/dL (5.7-8.2) LFT Test 07/03/24 06:52 Alanine Aminotransferase (ALT) 18 U/L (7-40) Alkaline Phosphatase 71 U/L (46-116) Aspartate Amino Transferase (AST) 18 U/L (13-40) Total Bilirubin 1.0 mg/dL (0.2-1.0) Labs and/or images reviewed: Labs reviewed by me, Image(s) reviewed by me Assessment/Plan Assessment/Plan Nausea vomiting and abdominal pain: CT abdomen pelvis without contrast pending Urinalysis and urine cultures pending lipase ordered Diverticulosis: Rocephin Depression Anxiety Hypertension Hypercholesterolemia Time spent 50 minutes Plan discussed with: Patient My Orders Orders - JADEN CANTOR MD Procedure Category Date Status Time Ct Ab Pel Wo Con-No CT 07/03/24 Logged Oral Or Iv 14:49 Lipase LAB 07/03/24 Logged 14:50 Urinalysis LAB 07/03/24 Transmitted 14:50 Urine Bacterial JEFFREY 07/03/24 Transmitted Culture 14:50 Date of Service: Jul 03, 2024 Billing Provider: JADEN CANTOR MD Common Visit Codes: [id number] INP/OBS CARE(HIGH) JADEN CANTOR MD Jul 03, 2024 14:53
[2024-07-03] MEDS: cefTRIAXone 1GM/50ML D5W 50 ML IV ONE (15:33)
--- NOTE | 2024-07-03 15:37 | DVH ---
CT ABDOMEN AND PELVIS WITHOUT CONTRAST CLINICAL HISTORY: Nausea vomiting TECHNIQUE: Multiple contiguous axial images of the abdomen and pelvis without intravenous contrast. The images were reformatted degenerate coronal and sagittal reconstructions. All CT scans at this medical facility are performed using dose modulation techniques as appropriate t o a performed exam including the following:Automated exposure control was utilized; adjustment of the MA and/or KV according to patient size; and use of iterative reconstruction technique. Radiation Dose Information: CT Dose: CTDI volume is 6.28 mGy. Dose-length product is 320.17 mGy*cm Comparison: None FINDINGS: Evaluation of the abdomen and pelvis is limited without intravenous contrast. The liver, gallbladder, pancreas, kidneys, adrenal glands, and spleen appear within normal limits. There is no gross evidence of abdominal lymphadenopathy. There is no free fluid or free air. The stomach grossly appears unremarkable. The small and large bowel loops demonstrate normal caliber and appear within normal limits.. The abdominal aorta and IVC appear within normal limits. The bladder appears unremarkable for the degree of distention. The uterus is surgically absent.. The re is no gross evidence of a pelvic mass. There is no free fluid collection. Lung bases are clear. There is no acute osseous abnormality. There are multilevel degenerative changes in the lumbar spine. There is grade 1 anterolisthesis at L4-L5. IMPRESSION: 1. There is no acute process in the abdomen and pelvis. HS:Y
[2024-07-03 16:33] LABS: Urine Bacteria FEW /hpf (None Seen); Urine Blood TRACE /uL (Negative); Urine Clarity Ex.Turbid (Clear); Urine Color Yellow (Yellow); Urine Mucus FEW (None Seen); Urine Protein, UAD 1+ (Negative); Urine Urobilinogen Normal (Negative); Urine WBC 209 /hpf (0 - 5); Urine pH 5.5 (5.0-9.0)
[2024-07-03] MEDS: metroNIDAZOLE 500MG/100ML 100 ML IV SCH (21:55)
[2024-07-04] VITALS (7 sets, daily range): BP systolic 72–119; BP diastolic 31–80; PULSE 61–87; RESP 12–18; TEMP 97.6–98.2; O2SAT 92–98
[2024-07-04] MEDS: cefTRIAXone 1GM/50ML D5W 50 ML IV SCH (09:18)
--- NOTE | 2024-07-04 10:51 | DVHPN2 ---
Reviewed: Care Plan, H&P, Labs, Medications, Previous Orders, Radiology Changes from previous H/P or p: No Changes Eyes: No Pain, No Vision change, No Conjunctivae inflammation, No Eyelid inflammation, No Other, No Redness ENT: No Ear pain, No Ear discharge, No Nose pain, No Nose discharge, No Nose congestion, No Mouth pain, No Mouth swelling, No Throat pain, No Throat swelling, No Other Cardiovascular: No Chest Pain, No Palpitations, No Orthopnea, No Paroxysmal Noc. Dyspnea, No Edema, No Lt Headedness, No Other Respiratory: No Cough, No Dry, No Shortness of breath, No SOB with excertion, No Wheezing, No Hemoptysis, No Pleuritic Pain, No Sputum, No Other Gastrointestinal: Nausea, Vomiting, Abdominal Pain; No Diarrhea; Constipation; No Melena, No Hematochezia, No Other Genitourinary: No Dysuria, No Frequency, No Incontinence, No Hematuria, No Retention, No Other Musculoskeletal: No other, No neck pain, No shoulder pain, No arm pain, No back pain, No hand pain, No leg pain, No foot pain Skin: No Rash, No Lesions, No Jaundice, No Bruising, No Other Objective Vitals Vital Signs Date Time Temp Pulse Resp B/P (MAP) Pulse Ox O2 Delivery O2 Flow Rate FiO2 07/04/24 09:20 98 106/80 07/04/24 08:59 97.9 17 97 97.9 07/04/24 08:00 Room Air* 0 21 Intake/Output Intake and Output 07/04/24 07:00 Intake Total 1750 ml Output Total 0 ml Balance 1750 ml Intake Oral 1600 ml IV Total 150 ml Output Stool Total 0 ml # Voids 8 Medications Current Medications Medications Dose Ordered Sig/Maria De Jesus Route Start Time Stop Time Status Last Admin Dose Admin Atorvastatin Calcium 40 mg HS PO 07/02/24 22:00 07/03/24 21:54 40 MG Docusate Sodium 100 mg BIDPRN PRN PO 07/02/24 15:15 Lisinopril 20 mg DAILY PO 07/03/24 10:00 07/04/24 09:19 20 MG Metoprolol Tartrate 25 mg BID PO 07/02/24 22:00 07/04/24 09:20 25 MG Patient Own Medication 25 mg DAILY PO 07/03/24 10:00 Pramipexole Dihydrochloride 0.25 mg HS PO 07/02/24 22:00 07/03/24 21:54 0.25 MG Diagnostic Test (Pha) 1 strip IQ4HR 07/02/24 16:00 07/04/24 08:00 1 STRIP Insulin Human Regular IQ4HR SC 07/02/24 16:00 07/04/24 04:00 2 UNITS Dextrose 50 ml UD PRN IV 07/02/24 15:15 Aspirin 81 mg DAILY PO 07/03/24 10:00 07/04/24 09:19 81 MG Acetaminophen 650 mg Q6HP PRN PO 07/02/24 15:15 Zolpidem Tartrate 5 mg QHSP PRN PO 07/02/24 15:15 Lorazepam 0.5 mg Q6HP PRN PO 07/02/24 15:15 Ondansetron HCl 4 mg Q4HP PRN IV 07/02/24 15:15 07/03/24 08:58 4 MG Al Hydrox/Mg Hydrox/Simethicone 30 ml Q6HPRN PRN PO 07/02/24 15:15 Nitroglycerin 0.4 mg Q5MINP PRN SL 07/02/24 15:15 Morphine Sulfate 2 mg Q30M PRN IV 07/02/24 15:15 Ceftriaxone Sodium 50 ml @ 100 mls/hr DAILY@09 IV 07/04/24 09:00 07/04/24 09:18 100 MLS/HR Metronidazole 100 ml @ 100 mls/hr Q8HR IV 07/03/24 22:00 07/04/24 05:06 100 MLS/HR Laboratory Results Laboratory Tests 07/03/24 06:52 Urinalysis Test 07/03/24 16:10 Urine Color Yellow (Yellow) Urine Clarity Ex.turbid (Clear) Urine pH 5.5 (5.0-9.0) Urine Specific [place] 1.020 (1.001-1.035) Urine Protein 1+ (Negative) H Urine Ketones Trace (Negative) Urine Blood Trace /uL (Negative) H Urine Nitrite Negative (Negative) Urine Bilirubin Negative (Negative) Urine Urobilinogen Normal mg/dL (Negative) Urine Leukocyte Esterase 3+ /uL (Negative) Urine RBC 89 /hpf (0 - 4) Urine WBC 209 /hpf (0 - 5) Urine Squamous Epithelial Cells Mod /hpf (<5) Urine Bacteria Few /hpf (None Seen) H Urine Mucus Few (None Seen) Urine Glucose Trace mg/dL (Normal) Labs and/or images reviewed: Labs reviewed by me, Image(s) reviewed by me Assessment/Plan Assessment/Plan Sepsis secondary to acute urinary tract infection blood cultures pending, urine cultures pending Acute urinary tract infection: Continue Rocephin, blood cultures pending, urine cultures pending Nausea vomiting and abdominal pain: CT abdomen pelvis without contrast negative for any acute pathology, lipase normal Diverticulosis: Rocephin Depression Anxiety Hypertension Hypercholesterolemia Time spent 50 minutes Plan discussed with: Patient My Orders Orders - JADEN CANTOR MD Procedure Category Date Status Time Ct Ab Pel Wo Con-No CT 07/03/24 Resulted Oral Or Iv 14:49 Urine Bacterial JEFFREY 07/03/24 In Process Culture 14:50 Ceftriaxone 1gm/50ml PHA 07/04/24 In Process D5w (Rocephin) 09:00 Metronidazole PHA 07/03/24 In Process 500mg/100ml (Flagyl 22:00 Date of Service: Jul 04, 2024 Billing Provider: JADEN CANTOR MD Common Visit Codes: [id number] INP/OBS CARE(HIGH) JADEN CANTOR MD Jul 04, 2024 10:51
[2024-07-04] MEDS: ZOLPIDEM TARTRATE 5 MG TAB PO PRN (21:29)
[2024-07-04] MEDS: LORazepam 0.5 MG TAB PO PRN (21:30)
[2024-07-04] MEDS: DOCUSATE SOD 100 MG CAP PO PRN (21:30)
[2024-07-05] VITALS (7 sets, daily range): BP systolic 115–159; BP diastolic 46–82; PULSE 62–102; RESP 16–17; TEMP 97.5–98.4; O2SAT 92–98
--- NOTE | 2024-07-05 10:48 | DVHPN2 ---
Reviewed: Care Plan, H&P, Labs, Medications, Previous Orders, Radiology Changes from previous H/P or p: No Changes Eyes: No Pain, No Vision change, No Conjunctivae inflammation, No Eyelid inflammation, No Other, No Redness ENT: No Ear pain, No Ear discharge, No Nose pain, No Nose discharge, No Nose congestion, No Mouth pain, No Mouth swelling, No Throat pain, No Throat swelling, No Other Cardiovascular: No Chest Pain, No Palpitations, No Orthopnea, No Paroxysmal Noc. Dyspnea, No Edema, No Lt Headedness, No Other Respiratory: No Cough, No Dry, No Shortness of breath, No SOB with excertion, No Wheezing, No Hemoptysis, No Pleuritic Pain, No Sputum, No Other Gastrointestinal: Nausea, Vomiting, Abdominal Pain; No Diarrhea; Constipation; No Melena, No Hematochezia, No Other Genitourinary: No Dysuria, No Frequency, No Incontinence, No Hematuria, No Retention, No Other Musculoskeletal: No other, No neck pain, No shoulder pain, No arm pain, No back pain, No hand pain, No leg pain, No foot pain Skin: No Rash, No Lesions, No Jaundice, No Bruising, No Other Objective Vitals Vital Signs Date Time Temp Pulse Resp B/P (MAP) Pulse Ox O2 Delivery O2 Flow Rate FiO2 07/05/24 09:27 136/65 07/05/24 09:26 91 07/05/24 09:00 97.8 17 96 97.8 07/04/24 08:00 Room Air* 0 21 Intake/Output Intake and Output 07/05/24 07:00 Intake Total 1925 ml Balance 1925 ml Intake Oral 1675 ml IV Total 250 ml # Voids 2 Medications Current Medications Medications Dose Ordered Sig/Maria De Jesus Route Start Time Stop Time Status Last Admin Dose Admin Atorvastatin Calcium 40 mg HS PO 07/02/24 22:00 07/04/24 21:29 40 MG Docusate Sodium 100 mg BIDPRN PRN PO 07/02/24 15:15 07/04/24 21:30 100 MG Lisinopril 20 mg DAILY PO 07/03/24 10:00 07/05/24 09:27 20 MG Metoprolol Tartrate 25 mg BID PO 07/02/24 22:00 07/05/24 09:26 25 MG Patient Own Medication 25 mg DAILY PO 07/03/24 10:00 Pramipexole Dihydrochloride 0.25 mg HS PO 07/02/24 22:00 07/04/24 21:29 0.25 MG Diagnostic Test (Pha) 1 strip IQ4HR 07/02/24 16:00 07/05/24 09:15 1 STRIP Insulin Human Regular IQ4HR SC 07/02/24 16:00 07/05/24 00:00 2 UNITS Dextrose 50 ml UD PRN IV 07/02/24 15:15 Aspirin 81 mg DAILY PO 07/03/24 10:00 07/05/24 09:23 81 MG Acetaminophen 650 mg Q6HP PRN PO 07/02/24 15:15 Zolpidem Tartrate 5 mg QHSP PRN PO 07/02/24 15:15 07/04/24 21:29 5 MG Lorazepam 0.5 mg Q6HP PRN PO 07/02/24 15:15 07/04/24 21:30 0.5 MG Ondansetron HCl 4 mg Q4HP PRN IV 07/02/24 15:15 07/03/24 08:58 4 MG Al Hydrox/Mg Hydrox/Simethicone 30 ml Q6HPRN PRN PO 07/02/24 15:15 Nitroglycerin 0.4 mg Q5MINP PRN SL 07/02/24 15:15 Morphine Sulfate 2 mg Q30M PRN IV 07/02/24 15:15 Ceftriaxone Sodium 50 ml @ 100 mls/hr DAILY@09 IV 07/04/24 09:00 07/05/24 09:22 100 MLS/HR Metronidazole 100 ml @ 100 mls/hr Q8HR IV 07/03/24 22:00 07/05/24 06:36 100 MLS/HR Laboratory Results Laboratory Tests 07/03/24 06:52 Urinalysis Test 07/03/24 16:10 Urine Color Yellow (Yellow) Urine Clarity Ex.turbid (Clear) Urine pH 5.5 (5.0-9.0) Urine Specific [place] 1.020 (1.001-1.035) Urine Protein 1+ (Negative) H Urine Ketones Trace (Negative) Urine Blood Trace /uL (Negative) H Urine Nitrite Negative (Negative) Urine Bilirubin Negative (Negative) Urine Urobilinogen Normal mg/dL (Negative) Urine Leukocyte Esterase 3+ /uL (Negative) Urine RBC 89 /hpf (0 - 4) Urine WBC 209 /hpf (0 - 5) Urine Squamous Epithelial Cells Mod /hpf (<5) Urine Bacteria Few /hpf (None Seen) H Urine Mucus Few (None Seen) Urine Glucose Trace mg/dL (Normal) Microbiology Microbiology Date/Time Source Procedure Growth Status 07/03/24 16:10 Voided Urine Urine Culture - Preliminary Resulted Labs and/or images reviewed: Labs reviewed by me, Image(s) reviewed by me Assessment/Plan Assessment/Plan Sepsis secondary to acute urinary tract infection blood cultures pending, urine cultures mixed Acute urinary tract infection: Continue Rocephin, Nausea vomiting and abdominal pain: CT abdomen pelvis without contrast negative for any acute pathology, lipase normal Diverticulosis: Rocephin Depression Anxiety Hypertension Hypercholesterolemia Time spent 40 minutes Possible discharge tomorrow Plan discussed with: Patient Date of Service: Jul 05, 2024 Billing Provider: JADEN CANTOR MD Common Visit Codes: [id number] INP/OBS CARE(HIGH) JADEN CANTOR MD Jul 05, 2024 10:48
[2024-07-06 04:15] VITALS: BP 138/68; PULSE 68; RESP 15; TEMP 98.1; O2SAT 96
[2024-07-06 08:00] VITALS: PULSE 82; RESP 19
[2024-07-06 09:00] VITALS: BP 147/57; PULSE 82; RESP 19; TEMP 97.3; O2SAT 95
[2024-07-06] MEDS ORDERED: CIPR-173 PO (09:39)
--- NOTE | 2024-07-06 09:40 | DVHPN2 ---
Reviewed: Care Plan, H&P, Labs, Medications, Previous Orders, Radiology Changes from previous H/P or p: No Changes Eyes: No Pain, No Vision change, No Conjunctivae inflammation, No Eyelid inflammation, No Other, No Redness ENT: No Ear pain, No Ear discharge, No Nose pain, No Nose discharge, No Nose congestion, No Mouth pain, No Mouth swelling, No Throat pain, No Throat swelling, No Other Cardiovascular: No Chest Pain, No Palpitations, No Orthopnea, No Paroxysmal Noc. Dyspnea, No Edema, No Lt Headedness, No Other Respiratory: No Cough, No Dry, No Shortness of breath, No SOB with excertion, No Wheezing, No Hemoptysis, No Pleuritic Pain, No Sputum, No Other Gastrointestinal: Nausea, Vomiting, Abdominal Pain; No Diarrhea; Constipation; No Melena, No Hematochezia, No Other Genitourinary: No Dysuria, No Frequency, No Incontinence, No Hematuria, No Retention, No Other Musculoskeletal: No other, No neck pain, No shoulder pain, No arm pain, No back pain, No hand pain, No leg pain, No foot pain Skin: No Rash, No Lesions, No Jaundice, No Bruising, No Other Objective Vitals Vital Signs Date Time Temp Pulse Resp B/P (MAP) Pulse Ox O2 Delivery O2 Flow Rate FiO2 07/06/24 04:15 98.1 68 15 138/68 (91) 96 98.1 07/05/24 19:30 Room Air* 0 21 Intake/Output Intake and Output 07/06/24 07:00 Intake Total 690 ml Balance 690 ml Intake Oral 440 ml IV Total 250 ml # Voids 2 # Bowel Movements 1 Medications Current Medications Medications Dose Ordered Sig/Maria De Jesus Route Start Time Stop Time Status Last Admin Dose Admin Atorvastatin Calcium 40 mg HS PO 07/02/24 22:00 07/05/24 21:46 40 MG Docusate Sodium 100 mg BIDPRN PRN PO 07/02/24 15:15 07/04/24 21:30 100 MG Lisinopril 20 mg DAILY PO 07/03/24 10:00 07/05/24 09:27 20 MG Metoprolol Tartrate 25 mg BID PO 07/02/24 22:00 07/05/24 21:46 25 MG Patient Own Medication 25 mg DAILY PO 07/03/24 10:00 Pramipexole Dihydrochloride 0.25 mg HS PO 07/02/24 22:00 07/05/24 21:46 0.25 MG Diagnostic Test (Pha) 1 strip IQ4HR 07/02/24 16:00 07/06/24 08:00 1 STRIP Insulin Human Regular IQ4HR SC 07/02/24 16:00 07/06/24 04:13 2 UNITS Dextrose 50 ml UD PRN IV 07/02/24 15:15 Aspirin 81 mg DAILY PO 07/03/24 10:00 07/05/24 09:23 81 MG Acetaminophen 650 mg Q6HP PRN PO 07/02/24 15:15 Zolpidem Tartrate 5 mg QHSP PRN PO 07/02/24 15:15 07/04/24 21:29 5 MG Lorazepam 0.5 mg Q6HP PRN PO 07/02/24 15:15 07/06/24 00:11 0.5 MG Ondansetron HCl 4 mg Q4HP PRN IV 07/02/24 15:15 07/03/24 08:58 4 MG Al Hydrox/Mg Hydrox/Simethicone 30 ml Q6HPRN PRN PO 07/02/24 15:15 Nitroglycerin 0.4 mg Q5MINP PRN SL 07/02/24 15:15 Morphine Sulfate 2 mg Q30M PRN IV 07/02/24 15:15 Ceftriaxone Sodium 50 ml @ 100 mls/hr DAILY@09 IV 07/04/24 09:00 07/05/24 09:22 100 MLS/HR Metronidazole 100 ml @ 100 mls/hr Q8HR IV 07/03/24 22:00 07/06/24 05:26 100 MLS/HR Laboratory Results Laboratory Tests 07/03/24 06:52 Urinalysis Test 07/03/24 16:10 Urine Color Yellow (Yellow) Urine Clarity Ex.turbid (Clear) Urine pH 5.5 (5.0-9.0) Urine Specific [place] 1.020 (1.001-1.035) Urine Protein 1+ (Negative) H Urine Ketones Trace (Negative) Urine Blood Trace /uL (Negative) H Urine Nitrite Negative (Negative) Urine Bilirubin Negative (Negative) Urine Urobilinogen Normal mg/dL (Negative) Urine Leukocyte Esterase 3+ /uL (Negative) Urine RBC 89 /hpf (0 - 4) Urine WBC 209 /hpf (0 - 5) Urine Squamous Epithelial Cells Mod /hpf (<5) Urine Bacteria Few /hpf (None Seen) H Urine Mucus Few (None Seen) Urine Glucose Trace mg/dL (Normal) Microbiology Microbiology Date/Time Source Procedure Growth Status 07/04/24 11:00 Blood Blood Culture - Preliminary NO GROWTH AFTER 24 HOURS OF INCUBATION. Resulted 07/03/24 16:10 Voided Urine Urine Culture - Final Complete Labs and/or images reviewed: Labs reviewed by me, Image(s) reviewed by me Assessment/Plan Assessment/Plan Sepsis secondary to acute urinary tract infection blood cultures neg , urine cultures mixed Acute urinary tract infection: Continue Rocephin, Nausea vomiting and abdominal pain: CT abdomen pelvis without contrast negative for any acute pathology, lipase normal Diverticulosis: Rocephin Depression Anxiety Hypertension Hypercholesterolemia Time spent 40 minutes Plan discussed with: Patient Date of Service: Jul 06, 2024 Billing Provider: JADEN CANTOR MD Common Visit Codes: [id number] INP/OBS CARE(HIGH) JADEN CANTOR MD Jul 06, 2024 09:40
--- NOTE | 2024-07-06 09:44 | DVHDS2 ---
Discharge Summary Date of Admission Jul 02, 2024 at 15:07 Date of Discharge: Jul 06, 2024 Admitting Diagnosis Generalized weakness and chest pain Wounds: None Labs/Diagnostic Data: Laboratory Results Test 07/06/24 04:03 07/03/24 16:10 07/03/24 06:52 07/02/24 15:41 POC Glucose 138 mg/dl (70-106) Urine Color Yellow (Yellow) Urine Clarity Ex.turbid (Clear) Urine pH 5.5 (5.0-9.0) Urine Specific [place] 1.020 (1.001-1.035) Urine Protein 1+ (Negative) Urine Ketones Trace (Negative) Urine Blood Trace /uL (Negative) Urine Nitrite Negative (Negative) Urine Bilirubin Negative (Negative) Urine Urobilinogen Normal mg/dL (Negative) Urine Leukocyte Esterase 3+ /uL (Negative) Urine RBC 89 /hpf (0 - 4) Urine WBC 209 /hpf (0 - 5) Urine Squamous Epithelial Cells Mod /hpf (<5) Urine Bacteria Few /hpf (None Seen) Urine Mucus Few (None Seen) Urine Glucose Trace mg/dL (Normal) White Blood Count 6.6 10^3/uL (4.4-10.8) Red Blood Count 4.43 10^6/uL (4.0-5.20) Hemoglobin 13.7 g/dL (12.2-16.2) Hematocrit 39.9 % (36.0-46.0) Mean Corpuscular Volume 90.1 fL (80.0-100.0) Mean Corpuscular Hemoglobin 30.9 pg (28.0-32.0) Mean Corpuscular Hemoglobin Concent 34.4 g/dL (32.0-36.0) Red Cell Distribution Width 13.3 % (11.8-14.3) Platelet Count 249 10^3/uL (140-450) Mean Platelet Volume 8.8 fL (6.9-10.8) Neutrophils (%) (Auto) 75.5 % (37.0-80.0) Lymphocytes (%) (Auto) 14.9 % (10.0-50.0) Monocytes (%) (Auto) 7.3 % (0.0-12.0) Eosinophils (%) (Auto) 1.8 % (0.0-7.0) Basophils (%) (Auto) 0.5 % (0.0-2.0) Neutrophils # (Auto) 5.0 10 ^3/uL (1.6-8.6) Lymphocytes # (Auto) 1.0 10 ^3/uL (0.4-5.4) Monocytes # (Auto) 0.5 10 ^3/uL (0-1.3) Eosinophils # (Auto) 0.1 10 ^3/uL (0-0.8) Basophils # (Auto) 0 10 ^3/uL (0-0.2) Nucleated Red Blood Cells 0.0 % Sodium Level 141 mmol/L (136-145) Potassium Level 3.7 mmol/L (3.5-5.1) Chloride Level 106 mmol/L (98-107) Carbon Dioxide Level 27 mmol/L (20-31) Anion Gap 8 (5-15) Blood Urea Nitrogen 12 mg/dL (9-23) Creatinine 0.76 mg/dL (0.550-1.02) Glomerular Filtration Rate Calc 85 mL/min (>90) BUN/Creatinine Ratio 15.8 (10.0-20.0) Serum Glucose 123 mg/dL (74-106) Calcium Level 10.2 mg/dL (8.7-10.4) Total Bilirubin 1.0 mg/dL (0.2-1.0) Aspartate Amino Transferase (AST) 18 U/L (13-40) Alanine Aminotransferase (ALT) 18 U/L (7-40) Alkaline Phosphatase 71 U/L (46-116) Total Protein 7.2 g/dL (5.7-8.2) Albumin 4.3 g/dL (3.2-4.8) Lipase 34 U/L (12-53) Troponin I High Sensitivity 3 ng/L (</=34) Test 07/02/24 14:12 B-Type Natriuretic Peptide 57.11 pg/mL (0-100) Other Laboratory Tests 07/03/24 06:52 Brief Hx & Hospital Course: 68-year-old female with a history of depression anxiety hypertension hypercholesterolemia diverticulosis came in complaining of chest pain and generalized weakness. She did not have any chest pain after admission to the hospital. Troponin negative x3 found to have acute urinary tract infection blood cultures negative urine cultures were mixed treated with Rocephin CT abdomen pelvis without contrast negative for any acute pathology lipase normal. At the time of discharge patient is asymptomatic no chest pain no shortness a breath no nausea or vomiting vital signs are stable. Discharged home on Cipro for UTI. She will follow up with the primary Dr. Consults/Reason for consult None Operations or Procedures None Condition at Discharge: Fair Final Diagnosis/Problems List Sepsis secondary to acute urinary tract infection blood cultures neg , urine cultures mixed Acute urinary tract infection: Continue Rocephin, Nausea vomiting and abdominal pain: CT abdomen pelvis without contrast negative for any acute pathology, lipase normal Diverticulosis: Rocephin Depression Anxiety Hypertension Hypercholesterolemia Chest pain troponin negative Discharge Disposition: Home Discharge Instruct/Medications Diet: Cardiac 2g Na,low cholest Activity: Light activity Follow Up/Referral: Continue all your previous home medications Follow up with the primary Dr Medications: Cipro Transmitted to the pharmacy 39 (Time taken for discharge summary 39 minutes) Discharge Statement: "Patient was advised to return to the ER or call 911 if any headaches, dizziness, shortness of breath, chest pain, abdominal pain, bleeding, fevers, or worsening of medical condition. Patient was counseled about treatment plan, medications, possible side effects, patientverbalized understanding. All questions were answered to the best of my ability. This discharge took greater then 30 minutes in planning, reviewing documentation, counseling the patient, and discussing with other team members." ASSESSMENT ASSESSMENT Hospital Course Resolved Assessment Sepsis secondary to acute urinary tract infection blood cultures neg , urine cultures mixed Acute urinary tract infection: Continue Rocephin, Nausea vomiting and abdominal pain: CT abdomen pelvis without contrast negative for any acute pathology, lipase normal Diverticulosis: Rocephin Depression Anxiety Hypertension Hypercholesterolemia Chest pain troponin negative Date of Service: Jul 06, 2024 Billing Provider: JADEN CANTOR MD Common Visit Codes: [id number] DISCH DAY >30min JADEN CANTOR MD Jul 06, 2024 09:44
[2024-07-06 10:26] VITALS: BP 147/57; PULSE 82; TEMP 36.3
[2024-07-06 12:50] VITALS: BP 126/72; PULSE 75; RESP 20; TEMP 98.3; O2SAT 95
== END 2024-07-06 14:30 | disposition home or self-care (01) | DRG 690 ==
LOC: ER 13:57 → OVERFLOW 15:07 → WEST WING 15:11
PROVIDERS: ADMIT Hospitalist; ATTEND Family Medicine
DX: N30.00 Acute cystitis without hematuria (principal); I24.9 Acute ischemic heart disease, unspecified; K57.30 Diverticulosis of large intestine without perforation or abscess without bleeding; E11.65 Type 2 diabetes mellitus with hyperglycemia; F32.A Depression, unspecified; E78.00 Pure hypercholesterolemia, unspecified; F41.9 Anxiety disorder, unspecified; I10 Essential (primary) hypertension; K76.89 Other specified diseases of liver; Z82.49 Family history of ischemic heart disease and other diseases of the circulatory system; Z86.73 Personal history of transient ischemic attack (TIA), and cerebral infarction without residual deficits; Z90.710 Acquired absence of both cervix and uterus; Z79.899 Other long term (current) drug therapy
CPT/HCPCS: 36415; 71046; 74176; 80048; 80053; 81001; 82962; 83690; 83880; 84484; 85025; 87040; 87086; 93005; 96372; 99291; G0378; J1815; J2405; J3490